=== PATIENT | female | born 2000 | race African-American/Black ===

== ENCOUNTER 2019-09-11 10:42 | Emergency (ER) | payer SELFPAY ==
[2019-09-11] MEDS ORDERED: Ketorolac 30 MG/ML SDV IM ONE (12:12)
--- NOTE | 2019-09-11 19:05 | EDM.PDOC ---
Scribed by Awilda Estrada 09/11/19 1219 for Dinora Rock NP ED HPI GENERAL MEDICAL PROBLEM - General Chief Complaint: Headache Stated Complaint: HEADACHE Time Seen by Provider: 09/11/19 11:23 Source of Information: Reports: Patient, RN, RN Notes Reviewed History Limitations: Reports: No Limitations - History of Present Illness INITIAL COMMENTS - FREE TEXT/NARRATIVE: Patient presents to ER with her with a headache. She states that 4 years ago she fell approximately 20 feet down stairs. She was in a coma for 2 days. She arrived here from [place] on Friday. Since her accident she has had central headaches once a week off and on. This headache started on and she took 2 ibuprofen yesterday. She is not light sensitive. She does have some dizziness with the headache. She has had no recent trauma. Her last menstrual period was mid July. The triggers for her headaches are reading, stress or none. She has had no nausea, vomiting or diarrhea. Some constipation. Onset Date: 09/09/19 Duration: Getting Worse Location: Reports: Head Quality: Reports: Ache Severity: Moderate Improves with: Reports: None Worsens with: Reports: None Associated Symptoms: Reports: No Other Symptoms Head Pain Score (Numeric/FACES): 6 - Related Data Allergies Allergy/AdvReac Type Severity Reaction Status Date / Time No Known Allergies Allergy Verified 09/11/19 11:15 Home Meds: Home Meds . 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 - Physical Exam Exam: See Below Exam Limited By: No Limitations General Appearance: Alert, WD/WN, No Apparent Distress Eye Exam: Bilateral Eye: EOMI, Normal Inspection, PERRL Ears: Normal External Exam, Normal Canal, Hearing Grossly Normal, Normal TMs Nose: Normal Inspection, Normal Mucosa, No Blood Throat/Mouth: Normal Inspection, Normal Lips, Normal Teeth, Normal Gums, Normal Oropharynx, Normal Voice, No Airway Compromise Head Exam: Atraumatic, Normocephalic Neck: Normal Inspection, Supple, Non-Tender, Full Range of Motion Respiratory/Chest: No Respiratory Distress, Lungs Clear, Normal Breath Sounds, No Accessory Muscle Use, Chest Non-Tender Cardiovascular: Normal Peripheral Pulses, Regular Rate, Rhythm, No Edema, No Gallop, No JVD, No Murmur, No Rub GI/Abdominal: Normal Bowel Sounds, Soft, Non-Tender, No Organomegaly, No Distention, No Abnormal Bruit, No Mass (Female) Exam: Deferred Rectal (Female) Exam: Deferred Neuro Exam (Abbreviated): Alert, Oriented, CN II-XII Intact, Normal Gait, Normal Reflexes, No Motor/Sensory Deficits, Other (trandum toe walk and heel walk okay. ) DTR: 2+: Bicep (R), Bicep (L), Tricep (R), Tricep (L), Patella (R), Patella (L) , Achilles (R), Achilles (L) Back Exam: Normal Inspection, Full Range of Motion, NT Extremities: Normal Inspection, Normal Range of Motion, Non-Tender, No Pedal Edema, Normal Capillary Refill Psychiatric: Normal Affect, Normal Mood Skin Exam: Warm, Dry, Intact, Normal Color, No Rash Course - Vital Signs Last Recorded V/S: Last Vital Signs Temp 36.6 C 09/11/19 11:12 Pulse 99 09/11/19 11:12 Resp 16 09/11/19 11:12 BP 96/67 09/11/19 11:12 Pulse Ox 100 09/11/19 11:12 - Orders/Labs/Meds Meds: Medications Discontinued Medications Generic Name Dose Route Start Last Admin Trade Name Ana PRN Reason Stop Dose Admin Ketorolac Tromethamine 30 mg 09/11/19 12:12 09/11/19 12:19 Toradol IM 09/11/19 12:13 30 mg ONETIME ONE Administration - Re-Assessments/Exams Free Text/Narrative Re-Assessment/Exam: 09/11/19 19:03 Negative findings on neuro exam; able to tandem, heel and toe walk without issues. NO immediate concerns at this time. generally healthy. Given Toradol IM and discussed rest and low stimulation. She just arrived from [place] and may be stressful for her. She is to obtain a PCP as discussed wit her and her . Given phone numbers to make appt. Departure - Departure Time of Disposition: 12:12 Disposition: Home, Self-Care 01 Condition: Good Clinical Impression: Migraine - Discharge Information Instructions: Migraine Headache, [id number], General Headache Without Cause, [id number] Forms: ED Department Discharge Additional Instructions: Rest. We gave her Toradol IM; Dont take anymore ibuprofen until bed time; if still has headache. I would take Tylenol in 4 hours and then only if needed for OSCAR. Make an appt for Primary Care at [facility] [phone]. Sepsis Event Note - Evaluation Sepsis Screening Result: No Definite Risk - Focused Exam Vital Signs: Vital Signs Temp Pulse Resp BP Pulse Ox 09/11/19 11:12 36.6 C 99 16 96/67 100 Date Exam was Performed: 09/11/19 Time Exam was Performed: 19:00 I have read and agree with the documentation that has been completed regarding this visit. By signing this record, I attest that the documentation was completed in my physical presence and is an accurate record of the encounter.
== END 2019-09-11 12:41 | disposition home or self-care (01) ==
LOC: DL.ED 10:42
DX: G43.909 Migraine, unspecified, not intractable, without status migrainosus (principal)
CPT/HCPCS: 96372; 99283; J1885

== ENCOUNTER 2019-09-16 12:48 | Emergency (ER) | payer SELFPAY ==
[2019-09-16] MEDS ORDERED: Sodium Chloride 0.9% 1,000 ML IV ONE ×2 (13:21→14:39)
[2019-09-16] MEDS ORDERED: Acetaminophen 325 MG Tab PO ONE (13:21)
[2019-09-16 14:22] LABS: ANION GAP 15.1; CHLORIDE,CL 93 mmol/L (101-111); SODIUM,NA 128 mmol/L (135-145)
[2019-09-16] MEDS ORDERED: Norepinephrine 4 MG in Dextrose 5% in Water 246 ML IV SCH ×2 (15:15)
[2019-09-16] MEDS ORDERED: NS + KCl 20mEq/L 1,000 ML IV SCH (15:45)
[2019-09-16] MEDS: Sodium Chloride 0.9% 10 ML Syringe FLUSH PRN ×2 (15:46→15:47)
--- NOTE | 2019-09-16 15:59 | EDM.PDOC ---
ED HPI GENERAL MEDICAL PROBLEM - General Chief Complaint: Fever Stated Complaint: NOT FEELING WELL Time Seen by Provider: 09/16/19 13:55 Source of Information: Reports: Patient, Family, RN, RN Notes Reviewed History Limitations: Reports: Language Barrier - History of Present Illness INITIAL COMMENTS - FREE TEXT/NARRATIVE: patient presents to ER with complaint of fever, headache, myalgias, malaise. Patient states she has a history of malaria in May 2019. Patient states she came back from [facility] [place] one week ago, and began getting sick. Patient states she has not had her malaria medications since she got back from [place]. Patient states she began with a headache about a week ago and has progressively gotten worse. toby presents to the ER and states the patient came to the [place] for the first time last week. He states she has been sick since she got here. Toby states 3 years ago the patient fell from an unknown height , hit her head on the floor, and was in a coma for 2 days. He states at that time no scan of the head was done. Onset: Gradual Generalized Pain Score (Numeric/FACES): 8 - Related Data Allergies Allergy/AdvReac Type Severity Reaction Status Date / Time No Known Allergies Allergy Verified 09/16/19 14:14 Home Meds: Home Meds . [No Known Home Meds] 09/11/19 [History] Past Medical History Neurological History: Reports: Brain Injury - Infectious Disease History Infectious Disease History: Reports: Other (See Below) Other Infectious Disease History: malaria Social & Family History - Family History Family Medical History: Noncontributory - Tobacco Use Smoking Status *Q: Never Smoker Second Hand Smoke Exposure: No - Caffeine Use Caffeine Use: Reports: None - Recreational Drug Use Recreational Drug Use: No ED ROS GENERAL - Review of Systems Review Of Systems: Comprehensive ROS is negative, except as noted in HPI. ED EXAM, SEPSIS - Physical Exam Exam: See Below Exam Limited By: Language Barrier General Appearance: Alert, WD/WN, Moderate Distress Eye Exam: Bilateral Eye: Other (scleral icterus) Ears: Normal External Exam, Normal Canal, Hearing Grossly Normal, Normal TMs Nose: Normal Inspection, Normal Mucosa, No Blood Throat/Mouth: Normal Oropharynx, Normal Voice, No Airway Compromise, Other (dry mucous membranes) Head: Atraumatic, Normocephalic Neck: Limited Range of Motion, Tender Lateral, Tender Midline, Other (nuchal rigidity) Respiratory/Chest: No Respiratory Distress, Lungs Clear, Normal Breath Sounds, No Accessory Muscle Use, Chest Non-Tender Cardiovascular: Normal Peripheral Pulses, Regular Rate, Rhythm, No Edema, No Gallop, No JVD, No Murmur, No Rub Peripheral Pulses: 2+: Radial (L), Radial (R) GI/Abdominal Exam: Normal Bowel Sounds, Soft, Non-Tender, No Organomegaly, No Distention, No Abnormal Bruit, No Mass, Pelvis Stable (Female) Exam: Deferred Rectal (Female) Exam: Deferred Back: Normal Inspection, Decreased Range of Motion, Paraspinal Tenderness, Vertebral Tenderness Extremities: Normal Inspection, Limited Range of Motion, Other (weakness in all 4 extremities) Neurological: Alert, Oriented, CN II-XII Intact, Normal Cognition Psychiatric: Anxious Skin: Warm, Dry, Intact, No Rash, Jaundice Lymphatic: Bilateral: Cervical Adenopathy Course - Vital Signs Last Recorded V/S: Last Vital Signs Temp 100.2 F 09/16/19 16:51 Pulse 104 H 09/16/19 16:51 Resp 26 H 09/16/19 16:51 BP 101/60 09/16/19 16:51 Pulse Ox 100 09/16/19 16:51 - Orders/Labs/Meds Orders: Active Orders 24 hr Category Date Time Status Peripheral IV Care [RC] . DIRECTED Care 09/16/19 13:21 Active CULTURE STREP A CONFIRMATION [] Stat Lab 09/16/19 14:25 Results HEPATITIS PANEL (4) [REF] Stat Lab 09/16/19 13:23 Received MALARIA SMEARS [MREF] Stat Lab 09/16/19 13:25 Received STREP SCRN A RAPID W CULT CONF [RM] Stat Lab 09/16/19 14:25 Results NS + KCl 20mEq/L [Normal Saline with 20 mEq KCl] 1,000 Med 09/16/19 15:45 Active ml IV ASDIRECTED Norepinephrine [Levophed] 4 mg Med 09/16/19 15:15 Active Dextrose 5% in Water 246 ml IV TITRATE Sodium Chloride 0.9% [Saline Flush] Med 09/16/19 13:21 Active 10 ml FLUSH ASDIRECTED PRN Isolation [COMM] Routine Oth 09/16/19 13:25 Ordered Peripheral IV Insertion Adult [OM.PC] Stat Oth 09/16/19 13:19 Ordered Transfuse Red Blood Cells [COMM] Stat Ot 09/16/19 14:57 Ordered Medication Orders Norepinephrine Bitartrate 4 mg (/ Dextrose/Water) 250 mls @ 7.5 mls/hr IV TITRATE CLAUDETTE; Protocol Last Admin: 09/16/19 15:40 Dose: 2 mcg/min, 7.5 mls/hr Potassium Chloride/Sodium Chloride (Normal Saline With 20 Meq Kcl) 1,000 mls @ 125 mls/hr IV ASDIRECTED CLAUDETTE Last Admin: 09/16/19 15:51 Dose: 125 mls/hr Sodium Chloride (Saline Flush) 10 ml FLUSH ASDIRECTED PRN PRN Reason: Keep Vein Open Last Admin: 09/16/19 15:47 Dose: 10 ml Admin: 09/16/19 15:46 Dose: 10 ml Labs: Laboratory Tests 09/16/19 09/16/19 09/16/19 Range/Units 13:25 13:25 13:25 WBC 5.3 (5.0-10.0) 10^3/uL RBC 2.91 L (4.2-5.4) 10^6/uL Hgb 7.3 L (12.0-16.0) g/dL Hct 21.3 L (37.0-47.0) % MCV 73.2 L (80-100) fL MCH 25.1 L (27.0-34.0) pg MCHC 34.3 (33.0-35.0) g/dL Plt Count 28 L* (150-450) 10^3/uL Neut % (Auto) 86.7 H (42.2-75.2) % Lymph % (Auto) 8.7 L (20.5-50.1) % Hoke % (Auto) 4.6 (2-8) % Eos % (Auto) 0.0 L (1.0-3.0) % Baso % (Auto) 0.0 (0.0-1.0) % Add Manual Diff Yes Neutrophils % (Manual) 72 (42-75) % Band Neutrophils % 20 % Lymphocytes % (Manual) 8 L (20-50) % Dohle Bodies 1+ slight Platelet Estimate Marked dec Hypochromasia 1+ slight Anisocytosis 1+ slight Microcytosis 2+ moderate Target Cells 1+ slight PT (9.0-12.0) SEC INR (0.9-1.2) Sodium 128 L (135-145) mmol/L Potassium 3.1 L (3.6-5.0) mmol/L Chloride 93 L (101-111) mmol/L Carbon Dioxide 23.0 (21.0-31.0) mmol/L Anion Gap 15.1 BUN 20 H (7-18) mg/dL Creatinine 0.6 (0.6-1.3) mg/dL Est Cr Clr Drug Dosing 127.45 mL/min Estimated GFR (MDRD) > 60 BUN/Creatinine Ratio 33.33 Glucose 101 (74-105) mg/dL Lactic Acid 2.8 H (0.5-2.2) mmol/L Calcium 8.3 L (8.4-10.2) mg/dl Total Bilirubin 8.5 H (0.2-1.0) mg/dL AST 108 H (10-42) IU/L ALT 97 H (10-60) IU/L Alkaline Phosphatase 73 (42-121) IU/L Total Protein 6.0 L (6.7-8.2) g/dl Albumin 3.0 L (3.2-5.5) g/dl Globulin 3.0 Albumin/Globulin Ratio 1.00 HCG, Qual Urine Color (YELLOW) Urine Appearance (CLEAR) Urine pH (5.0-9.0) Ur Specific Ketchum (1.005-1.030) Urine Protein (NEGATIVE) Urine Glucose (UA) (NEGATIVE) Urine Ketones (NEGATIVE) Urine Occult Blood (NEGATIVE) Urine Nitrite (NEGATIVE) Urine Bilirubin (NEGATIVE) Urine Urobilinogen (0.2-1.0) mg/dL Ur Leukocyte Esterase (NEGATIVE) Urine RBC /HPF Urine WBC (0-5/HPF) /HPF Ur Epithelial Cells (NOT SEEN) /HPF Urine Bacteria (0-FEW/HPF) /HPF Granular Casts (NOT SEEN) /LPF Urine Mucus (NOT SEEN) /LPF Bld Parasites Quantity See note Blood Type Gel Antibody Screen Crossmatch 09/16/19 09/16/19 09/16/19 Range/Units 13:25 13:25 13:25 WBC (5.0-10.0) 10^3/uL RBC (4.2-5.4) 10^6/uL Hgb (12.0-16.0) g/dL Hct (37.0-47.0) % MCV (80-100) fL MCH (27.0-34.0) pg MCHC (33.0-35.0) g/dL Plt Count (150-450) 10^3/uL Neut % (Auto) (42.2-75.2) % Lymph % (Auto) (20.5-50.1) % Hoke % (Auto) (2-8) % Eos % (Auto) (1.0-3.0) % Baso % (Auto) (0.0-1.0) % Add Manual Diff Neutrophils % (Manual) (42-75) % Band Neutrophils % % Lymphocytes % (Manual) (20-50) % Dohle Bodies Platelet Estimate Hypochromasia Anisocytosis Microcytosis Target Cells PT 10.9 (9.0-12.0) SEC INR 1.1 (0.9-1.2) Sodium (135-145) mmol/L Potassium (3.6-5.0) mmol/L Chloride (101-111) mmol/L Carbon Dioxide (21.0-31.0) mmol/L Anion Gap BUN (7-18) mg/dL Creatinine (0.6-1.3) mg/dL Est Cr Clr Drug Dosing mL/min Estimated GFR (MDRD) BUN/Creatinine Ratio Glucose (74-105) mg/dL Lactic Acid (0.5-2.2) mmol/L Calcium (8.4-10.2) mg/dl Total Bilirubin (0.2-1.0) mg/dL AST (10-42) IU/L ALT (10-60) IU/L Alkaline Phosphatase (42-121) IU/L Total Protein (6.7-8.2) g/dl Albumin (3.2-5.5) g/dl Globulin Albumin/Globulin Ratio HCG, Qual Negative Urine Color (YELLOW) Urine Appearance (CLEAR) Urine pH (5.0-9.0) Ur Specific Ketchum (1.005-1.030) Urine Protein (NEGATIVE) Urine Glucose (UA) (NEGATIVE) Urine Ketones (NEGATIVE) Urine Occult Blood (NEGATIVE) Urine Nitrite (NEGATIVE) Urine Bilirubin (NEGATIVE) Urine Urobilinogen (0.2-1.0) mg/dL Ur Leukocyte Esterase (NEGATIVE) Urine RBC /HPF Urine WBC (0-5/HPF) /HPF Ur Epithelial Cells (NOT SEEN) /HPF Urine Bacteria (0-FEW/HPF) /HPF Granular Casts (NOT SEEN) /LPF Urine Mucus (NOT SEEN) /LPF Bld Parasites Quantity Blood Type O POSITIVE Gel Antibody Screen Negative Crossmatch See Detail 09/16/19 Range/Units 14:56 WBC (5.0-10.0) 10^3/uL RBC (4.2-5.4) 10^6/uL Hgb (12.0-16.0) g/dL Hct (37.0-47.0) % MCV (80-100) fL MCH (27.0-34.0) pg MCHC (33.0-35.0) g/dL Plt Count (150-450) 10^3/uL Neut % (Auto) (42.2-75.2) % Lymph % (Auto) (20.5-50.1) % Hoke % (Auto) (2-8) % Eos % (Auto) (1.0-3.0) % Baso % (Auto) (0.0-1.0) % Add Manual Diff Neutrophils % (Manual) (42-75) % Band Neutrophils % % Lymphocytes % (Manual) (20-50) % Dohle Bodies Platelet Estimate Hypochromasia Anisocytosis Microcytosis Target Cells PT (9.0-12.0) SEC INR (0.9-1.2) Sodium (135-145) mmol/L Potassium (3.6-5.0) mmol/L Chloride (101-111) mmol/L Carbon Dioxide (21.0-31.0) mmol/L Anion Gap BUN (7-18) mg/dL Creatinine (0.6-1.3) mg/dL Est Cr Clr Drug Dosing mL/min Estimated GFR (MDRD) BUN/Creatinine Ratio Glucose (74-105) mg/dL Lactic Acid (0.5-2.2) mmol/L Calcium (8.4-10.2) mg/dl Total Bilirubin (0.2-1.0) mg/dL AST (10-42) IU/L ALT (10-60) IU/L Alkaline Phosphatase (42-121) IU/L Total Protein (6.7-8.2) g/dl Albumin (3.2-5.5) g/dl Globulin Albumin/Globulin Ratio HCG, Qual Urine Color Lauren (YELLOW) Urine Appearance Slightly cloudy (CLEAR) Urine pH 6.0 (5.0-9.0) Ur Specific Ketchum 1.015 (1.005-1.030) Urine Protein 30 H (NEGATIVE) Urine Glucose (UA) Negative (NEGATIVE) Urine Ketones Trace H (NEGATIVE) Urine Occult Blood Negative (NEGATIVE) Urine Nitrite Negative (NEGATIVE) Urine Bilirubin Moderate H (NEGATIVE) Urine Urobilinogen >=8.0 H (0.2-1.0) mg/dL Ur Leukocyte Esterase Negative (NEGATIVE) Urine RBC Not seen /HPF Urine WBC 0-5 (0-5/HPF) /HPF Ur Epithelial Cells Moderate H (NOT SEEN) /HPF Urine Bacteria Few (0-FEW/HPF) /HPF Granular Casts Few (NOT SEEN) /LPF Urine Mucus Moderate H (NOT SEEN) /LPF Bld Parasites Quantity Blood Type Gel Antibody Screen Crossmatch Meds: Medications Generic Name Dose Route Start Last Admin Trade Name Freq PRN Reason Stop Dose Admin Norepinephrine Bitartrate 4 mg 250 mls @ 7.5 mls/hr 09/16/19 15:15 09/16/19 15:40 / Dextrose/Water IV 2 mcg/min TITRATE CLAUDETTE 7.5 mls/hr Administration Protocol 2 MCG/MIN Potassium Chloride/Sodium Chloride 1,000 mls @ 125 mls/hr 09/16/19 15:45 15:51 Normal Saline With 20 Meq Kcl IV 125 mls/hr ASDIRECTED CLAUDETTE Administration Sodium Chloride 10 ml 09/16/19 13:21 09/16/19 15:47 Saline Flush FLUSH 10 ml ASDIRECTED PRN Administration Keep Vein Open Discontinued Medications Generic Name Dose Route Start Last Admin Trade Name Freq PRN Reason Stop Dose Admin Acetaminophen 650 mg 09/16/19 13:21 09/16/19 13:42 Tylenol PO 09/16/19 13:22 650 mg NOW ONE Administration Sodium Chloride 1,000 mls @ 999 mls/hr 09/16/19 13:21 09/16/19 14:41 Normal Saline IV 09/16/19 14:21 Infused .BOLUS ONE Infusion Sodium Chloride 1,000 mls @ 999 mls/hr 09/16/19 14:39 09/16/19 14:43 Normal Saline IV 09/16/19 15:39 999 mls/hr .BOLUS ONE Administration - Radiology Interpretation Free Text/Narrative:: chest x-ray: FINDINGS: Lungs: Unremarkable. No consolidation. Pleural space: Unremarkable. No pleural effusion. No pneumothorax. Heart/Mediastinum: Unremarkable. No cardiomegaly. Bones/joints: Unremarkable. IMPRESSION: No acute findings. Thank you for allowing us to participate in the care of your patient. Dictated and Authenticated by: Jorgito Green MD 09/16/2019 3:57 PM Central Time ([place] & [place]) see radiologist's report - Re-Assessments/Exams Free Text/Narrative Re-Assessment/Exam: 09/16/19 16:37 Patient case discussed with Dr. Cronin at [facility]. She states she would like to talk to Dr. Roldan in Infectious Disease. Dr. Roldan states they do not have the correct medications to care for the patient and would be 1-2 days before they would get it. Discussed patient case with Dr. Sharp at [place] in [place] who agreed to accept the patient for transfer. [facility] fixed wing will transport the patient to [place]. Departure - Departure Time of Disposition: 16:39 Disposition: DC/Tfer to Acute Hospital 02 Condition: Poor, Serious, Critical Clinical Impression: Malaria - Discharge Information *PRESCRIPTION DRUG MONITORING PROGRAM REVIEWED*: No *COPY OF PRESCRIPTION DRUG MONITORING REPORT IN PATIENT BIRD: No Forms: ED Department Discharge, Interfacility Transfer EMTALA Sepsis Event Note - Evaluation Sepsis Screening Result: No Definite Risk - Focused Exam Vital Signs: Vital Signs Temp Temp Temp Pulse Resp BP Pulse Ox 09/16/19 16:51 100.2 F 104 H 26 H 101/60 100 09/16/19 16:45 99.3 F 102 H 21 H 98/62 100 09/16/19 16:38 99.4 F 103 H 20 98/57 L 100 09/16/19 16:24 100.4 F 104 H 29 H 104/77 100 09/16/19 16:23 99.5 F 102 H 23 H 99/54 L 100 09/16/19 16:21 100.4 F 104 H 22 H 104/77 100 09/16/19 16:08 100.1 F 104 H 26 H 99/52 L 100 09/16/19 15:49 100.1 F 104 H 25 H 96/53 L 100 09/16/19 13:52 101.7 F H 103.3 F H 125 H 32 H 84/49 L 100 Date Exam was Performed: 09/16/19 Time Exam was Performed: 17:10 - My Orders Last 24 Hours: My Active Orders 09/16/19 13:19 Peripheral IV Insertion Adult [OM.PC] Stat 09/16/19 13:21 Peripheral IV Care [RC] . DIRECTED Sodium Chloride 0.9% [Saline Flush] 10 ml FLUSH ASDIRECTED PRN 09/16/19 13:23 HEPATITIS PANEL (4) [REF] Stat 09/16/19 13:25 MALARIA SMEARS [MREF] Stat Isolation [COMM] Routine 09/16/19 14:25 CULTURE STREP A CONFIRMATION [RM] Stat STREP SCRN A RAPID W CULT CONF [RM] Stat 09/16/19 14:57 Transfuse Red Blood Cells [COMM] Stat 09/16/19 15:15 Norepinephrine [Levophed] 4 mg Dextrose 5% in Water 246 ml IV TITRATE 09/16/19 15:45 NS + KCl 20mEq/L [Normal Saline with 20 mEq KCl] 1,000 ml IV ASDIRECTED - Assessment/Plan Last 24 Hours: My Active Orders 09/16/19 13:19 Peripheral IV Insertion Adult [OM.PC] Stat 09/16/19 13:21 Peripheral IV Care [RC] . DIRECTED Sodium Chloride 0.9% [Saline Flush] 10 ml FLUSH ASDIRECTED PRN 09/16/19 13:23 HEPATITIS PANEL (4) [REF] Stat 09/16/19 13:25 MALARIA SMEARS [MREF] Stat Isolation [COMM] Routine 09/16/19 14:25 CULTURE STREP A CONFIRMATION [RM] Stat STREP SCRN A RAPID W CULT CONF [RM] Stat 09/16/19 14:57 Transfuse Red Blood Cells [COMM] Stat 09/16/19 15:15 Norepinephrine [Levophed] 4 mg Dextrose 5% in Water 246 ml IV TITRATE 09/16/19 15:45 NS + KCl 20mEq/L [Normal Saline with 20 mEq KCl] 1,000 ml IV ASDIRECTED
== END 2019-09-16 16:55 ==
LOC: DL.ED 12:48
DX: B54 Unspecified malaria (principal)
CPT/HCPCS: 36415; 36430; 71045; 80053; 80074; 81001; 83605; 84703; 85025; 85610; 86850; 86900; 86901; 86920; 86922; 87081; 87207; 87430; 87804; 96361; 96365; 99284; 99285-25; A9270-GY; J3480; J7030; J7060; P9016